=== PATIENT | female | born 1945 | race American Indian/Alaskan Native ===

== ENCOUNTER 2018-09-08 06:44 | Inpatient (IN) | payer MEDICARE, OTHER ==
[~2018-09-08 06:44] MED LIST: MARCAINE-EPI 0.25%-1:200,000 INFILTRATI ONE; PREMARIN VG ONE
[2018-09-08] MEDS ORDERED: MARCAINE 0.25% INFILTRATI ONE (07:18)
[2018-09-08] MEDS ORDERED: MARCAINE-EPI 0.25%-1:200,000 INFILTRATI ONE (07:19)
[2018-09-08] MEDS ORDERED: DILAUDID IV PRN (07:26)
--- NOTE | 2018-09-08 07:26 | Anesthesia Day of Surgery ---
Anesthesia Day of Surgery - Day of Surgery Patient Examined: Yes Patient H&P Reviewed: Yes Patient is NPO: Yes
--- NOTE | 2018-09-08 07:26 | Anesthesia Consultation ---
Anesthesia Consult and Med Hx Date of service: 09/08/18 - Airway Anesthetic Teeth Evaluation: Good ROM Head & Neck: Adequate Mental/Hyoid Distance: Adequate Mallampati Class: Class I Intubation Access Assessment: Good - Pulmonary Exam CTA: Yes - Cardiac Exam Cardiac Exam: RRR - Pre-Operative Health Status ASA Pre-Surgery Classification: ASA1 Proposed Anesthetic Plan: General - Pulmonary Hx Smoking: No Hx Respiratory Symptoms: No Hx Sleep Apnea: No - Cardiovascular System Hx Hypertension: No Hx Heart Attack/AMI: No Hx Percutaneous Transluminal Coronary Angioplasty (PTCA): No Hx Cardia Arrhythmia: No - Central Nervous System Hx Seizures: No CVA: No Hx Psychiatric Problems: No - Gastrointestinal Hx Gastroesophageal Reflux Disease: No - Endocrine Hx Renal Disease: No Hx Liver Disease: No Hx Insulin Dependent Diabetes: No Hx Non-Insulin Dependent Diabetes: No Hx Thyroid Disease: No - Other Systems Hx Obesity: No - Additional Comments Anesthesia Medical History Comments: No hx anesthetic complications. Very active lifestyle.
[2018-09-08] MEDS ORDERED: LACTATED RINGERS 1,000 ML ONE ×2 (07:57→10:38)
[2018-09-08] MEDS ORDERED: NEURONTIN PO NR (08:00)
[2018-09-08] MEDS ORDERED: LACTATED RINGERS 1,000 ML IV SCH (08:00)
[2018-09-08] MEDS ORDERED: XYLOCAINE MPF 2% ONE (08:16)
[2018-09-08] MEDS ORDERED: DIPRIVAN 10 MG/ML IV ONE (08:16)
[2018-09-08] MEDS ORDERED: DILAUDID ONE (08:16)
[2018-09-08] MEDS ORDERED: VERSED ONE (08:20)
--- NOTE | 2018-09-08 08:21 | History and Physical Report ---
History of Present Illness Date of examination: 09/08/18 Date of admission: 09/08/2018 Chief complaint: My bladder is dropping History of present illness: Pt is a 72 year old female in good health who presents for management of Grade 2 cystocele. Pt complains of vaginal pressure and feeling like a ball is coming out Past History Past Medical History: no pertinent history Past Surgical History: hysterectomy Family/Genetic History: none Social history: Medications and Allergies Allergies Allergy/AdvReac Type Severity Reaction Status Date / Time codeine Allergy severe N&V Verified 09/06/18 08:03 morphine Allergy Nausea Verified 09/06/18 08:03 Home Medications Medication Instructions Recorded Confirmed Last Taken Type Multivitamins Chewables Tablet 1 tab PO DAILY 07/25/15 09/06/18 Unknown History Active Meds: Active Medications Celecoxib (Celebrex) 200 mg PO PREOP NR Stop: 09/08/18 13:00 Last Admin: 09/08/18 07:55 Dose: 200 mg Documented by: Gabapentin (Neurontin) 300 mg PO PREOP NR Stop: 09/08/18 13:00 Last Admin: 09/08/18 07:55 Dose: 300 mg Documented by: Hydromorphone HCl (Dilaudid) 0.5 mg IV Q10MIN PRN PRN Reason: Pain , Severe (7-10) Stop: 09/08/18 20:00 Lactated Ringer's (Lactated Ringers) 1,000 mls @ 100 mls/hr IV DIRECT LUIS Last Admin: 09/08/18 07:55 Dose: 100 mls/hr Documented by: Review of Systems All systems: negative Genitourinary: other (vaginal pressure, vaginal dryness) - Vital Signs Vital signs: Vital Signs Resp 09/08/18 07:55 Temp Pulse Resp BP Pulse Ox 09/08/18 07:55 - Physical Exam Breasts: Positive: deferred Cardiovascular: Regular rate, Normal S1, Normal S2 Lungs: Positive: Clear to auscultation, Normal air movement Abdomen: Positive: normal appearance, soft, normal bowel sounds. Negative: distention, tenderness Genitourinary (Female): Positive: normal external genitalia, normal perenium Vulva: both: normal Vagina: Positive: normal moisture. Negative: discharge Cervix: Negative: lesion, discharge Uterus: Positive: absent Adnexa: both: normal Anus/Rectum: Positive: normal perianal skin, heme negative. Negative: rectal mass, hemorrhoids Extremities: Deep Tendon Reflex Grade: Normal +2 Results All other labs normal. Assessment and Plan 72 year old female here for management of cystocele. Admit for treatment. Consents signed and on chart
[2018-09-08] MEDS ORDERED: ANCEF/STERILE WATER 2 GM/20 ML 2 GM/20 ML SYRINGE IV NR (09:00)
[2018-09-08] MEDS ORDERED: PHENYLEPHRINE/NS Syringe 1,000 MCG/10 ML IV ONE (09:53)
[2018-09-08] MEDS ORDERED: PREMARIN VG ONE ×2 (10:39→10:53)
[2018-09-08] MEDS ORDERED: ZOFRAN ONE (10:55)
[2018-09-08] MEDS ORDERED: QUELICIN ONE (10:55)
[2018-09-08] MEDS ORDERED: TORADOL ONE (10:57)
[2018-09-08] MEDS ORDERED: NORCO 5/325 PO PRN (11:41)
[2018-09-08] MEDS ORDERED: PERCOCET 5/325 PO PRN (11:41)
--- NOTE | 2018-09-08 11:45 | Post Operative Note ---
Pre-op diagnosis: Cystocele and Rectocele Post-op diagnosis: same Findings: Grade 2 cytocele and rectocele Procedure: Anterior and Posterior repair Anesthesia: GETA Surgeon: FIDELIA RODRIGUEZ Estimated blood loss: other (200cc) Pathology: list (portions of vaginal tissue) Specimen disposition: to lab Condition: stable Disposition: PACU
[2018-09-08] MEDS: ZOFRAN IV PRN ×2 (12:40→20:30)
[2018-09-08] MEDS: TORADOL IV SCH ×3 (12:47→21:31)
[2018-09-08] MEDS: D5LR 1,000 ML IV SCH ×2 (12:50→21:12)
--- NOTE | 2018-09-08 14:09 | Post Anesthesia Evaluation ---
- Post Anesthesia Evaluation Patient Participated: Yes Airway Patent: Yes Stable Respiratory Function: Yes Nausea/Vomiting: No Temp > 96.8F: Yes Pain Manageable: Yes Adequeate Hydration: Yes Anesthesia Complications: No
[2018-09-08] MEDS ORDERED: REGLAN IV PRN (20:55)
[2018-09-08] MEDS ORDERED: COLACE PO SCH (22:00)
[2018-09-09] MEDS: D5LR 1,000 ML IV SCH (04:29)
[2018-09-09 05:40] LABS: Hematocrit 26.9 % (30.3-42.9)
[2018-09-09] MEDS: TORADOL IV SCH (12:33)
[2018-09-09 13:03] VITALS: BP 108/55
--- NOTE | 2018-09-09 19:52 | Discharge Summary ---
Providers - Providers Date of Admission: 09/08/18 11:40 Date of discharge: 09/09/18 Attending physician: FIDELIA RODRIGUEZ Primary care physician: LINDA MUHAMMAD MD Hospitalization Reason for admission: other (vaginal prolapse) Procedure: other Procedure details: see op report Discharge diagnosis: other Hospital course: unremarkable except for some nausea and vomiting last night after surgery Condition at discharge: Good Disposition: DC-01 TO HOME OR SELFCARE Plan - Discharge Medications Prescriptions: Ibuprofen [Motrin] 800 mg PO Q8HR PRN #40 tablet PRN Reason: Pain, Moderate (4-6) - Provider Discharge Summary Activity: routine, no heavy lifting 4 weeks, no strenuous exercise Diet: routine Instructions: routine Additional instructions: [] Smoking cessation referral if applicable(refer to patient education folder for contact #) [] Refer to [facility] Booklet Call your doctor immediately for: * Fever > 100.5 * Heavy vaginal bleeding ( >1 pad per hour) * Severe persistent headache * Shortness of breath * Reddened, hot, painful area to leg or breast * Drainage or odor from incision. * Keep incision clean and dry at all times and follow doctor's instructions regarding bathing/showering - Follow up plan Follow up: FIDELIA RODRIGUEZ MD [Staff Physician] - 14 Days
--- NOTE | 2018-09-29 19:48 | Operative Report ---
Operative Report Operative Report: Preoperative diagnoses: 1 cystocele, 2 rectocele status post hysterectomy. Postoperative diagnosis: Same Procedure: Anterior and posterior repair Surgeon: Dr. Naomi Crespo Anesthesia: Gen. EBL: 200 mL Urine output: 200 mL clear and yellow at end of the procedure IV fluids: 1200 mL LR Complications: none Specimen: Excess vaginal mucosa Procedure: The patient taken to the OR with IV running and in place. She had been properly identified as herself. She is placed in dorsal lithotomy position. Attention was turned to her perineum. A Dykes catheter was placed into her urethra. Attention is first turned to the posterior fourchette, where a weighted speculum was placed into the vagina the mucosa overlying the urethra was grasped and onto incision was made along the mucosa overlying the bladder. The tissue was dissected off bilaterally to the pubovesical fascia the fascia was then reapproximated in the midline using individual sutures of 2-0 Vicryl once they were reapproximated to the level of the cul-de-sac and the remaining tissue was dissected off and then the final mucosa was oversewn. Attention was then turned to the posterior vaginal wall. Pennie-shaped incision was made at the posterior fourchette. The rectal side of the vaginal mucosa was dissected from the underlying rectum out to the level of the fascia bilaterally. The fascia was then reapproximated in the midline overlying the rectum. The excess tissue was removed. And finally the remaining mucosa was reapproximated in the midline. There was excellent hemostasis at this portion of the procedure. The vagina was packed with gauze that had been soaked with Premarin cream. The patient was then awakened currently in stable condition. Tolerated the procedure well.
== END 2018-09-09 14:29 | disposition home or self-care (01) | DRG 748 ==
LOC: OR 06:44 → OB 11:40
PROVIDERS: ADMIT Obstetrics & Gynecology; ATTEND Obstetrics & Gynecology
PROC: 0JQC0ZZ Repair Pelvic Region Subcutaneous Tissue and Fascia, Open Approach (ICD-10-PCS; principal; 2018-09-08)
PROC: 0JQC0ZZ Repair Pelvic Region Subcutaneous Tissue and Fascia, Open Approach (ICD-10-PCS; 2018-09-08)
DX: N81.10 Cystocele, unspecified (principal); N81.6 Rectocele; Z90.710 Acquired absence of both cervix and uterus; Z88.5 Allergy status to narcotic agent
CPT/HCPCS: 36415; 85014; 85018; 88305; G0378; J0330; J0690; J1170; J1885; J2250; J2370; J2405; J2704; J2765; J7120; J7121